=== PATIENT | female | born 1990 | race American Indian/Alaskan Native ===

== ENCOUNTER 2019-08-14 12:18 | Outpatient (CLI) | payer SELFPAY ==
--- NOTE | 2019-08-14 13:59 | Event Note ---
Date: 08/14/19 complains of suprapubic and right lower quadrant pain that started this am, no fever, chill, nausea or vomting. Ate earlier today. No dysuria. +FM, no UC or leaking, IUP@~[id number] by her LMP. FHT's cat 1 for GA, no UC, cervix closed. Abd soft, +BS, NT. Probable round ligament pain, however will check CMP,UA, CBC. Tylenol for now
[2019-08-14 14:12] LABS: Basophils # (Auto) 0.1 K/mm3 (0.0-0.1); Basophils % (Auto) 0.6 % (0.0-1.8); Eosinophils # (Auto) 0.2 K/mm3 (0.0-0.4); Eosinophils % (Auto) 1.4 % (0.0-4.3); Hematocrit 34.6 % (30.3-42.9); Hemoglobin 11.5 gm/dl (10.1-14.3); Lymphocytes # (Auto) 1.9 K/mm3 (1.2-5.4); Lymphocytes % (Auto) 18.1 % (13.4-35.0); Mean Corpuscular HGB Conc 33 % (30-34); Mean Corpuscular Volume 83 fl (79-97); Monocytes # (Auto) 0.8 K/mm3 (0.0-0.8); Monocytes % (Auto) 7.1 % (0.0-7.3); Platelet Count 190 K/mm3 (140-440); Red Blood Count 4.18 M/mm3 (3.65-5.03)
[2019-08-14 14:28] LABS: Bacteria,Urine 1+ /HPF (Negative); Bilirubin,Urine NEG (Negative); Blood,Urine NEG (Negative); Color,Urine Straw (Yellow); Protein,Urine <15 mg/dL mg/dL (Negative); Urobilinogen,Urine < 2.0 mg/dL (<2.0); WBC,Urine < 1.0 /HPF (0.0-6.0)
[2019-08-14 14:32] LABS: Alanine Aminotransferase 9 units/L (7-56); Albumin 3.5 g/dL (3.9-5); BUN/Creatinine Ratio 12; Blood Urea Nitrogen 6 mg/dL (7-17); Hemolysis Index 0
[2019-08-14] MEDS ORDERED: TYLENOL PO ONE (16:00)
[2019-08-14 17:07] VITALS: BP 105/66
== END 2019-08-14 16:05 | disposition home or self-care (01) ==
LOC: TRG 12:18 → LD 13:19 → TRG 16:05
PROVIDERS: ATTEND Obstetrics & Gynecology
DX: O47.02 False labor before 37 completed weeks of gestation, second trimester (principal); Z3A.26 26 weeks gestation of pregnancy
CPT/HCPCS: 36415; 80053; 81001; 85025